=== PATIENT | female | born 1975 | race Caucasian/White ===

== ENCOUNTER 2017-02-23 21:00 | Inpatient (IN) ==
[2017-02-23] MEDS ORDERED: 0.9 % SODIUM CHLORIDE 500 ML IV ONE (21:29)
[2017-02-23] MEDS ORDERED: ONDANSETRON 4 MG/2 ML VIAL IV ONE (21:29)
[2017-02-23 22:28] LABS: Basophils # (Auto) 0 K/mcL (0.0-0.3); Basophils % (Auto) 0.5 % (0.0-2.0); Eosinophils # (Auto) 0.1 K/mcL (0.0-0.7); Eosinophils % (Auto) 1.7 % (0.0-7.0); Granulocytes % (Auto) 81.7 % (38.0-78.0); Lymphocytes # (Auto) 0.8 K/mcL (1.5-4.8); Lymphocytes % (Auto) 10.2 % (15.5-49.0); Mean Cell Volume 98.2 fL (80.0-100.0); Mean Corpuscular HGB Conc 32.9 g/dL (31.0-36.0); Mean Corpuscular Hemoglobin 32.3 pg (26.0-34.0); Monocytes # (Auto) 0.5 K/mcL (0.1-0.9); Monocytes % (Auto) 5.9 % (1.0-12.0); Platelet Count 109 K/mcL (140-440); RBC 4.61 M/mcL (4.00-5.20); Red Cell Distribution Width 13.3 % (11.5-14.5)
[2017-02-23 22:45] LABS: ALT/SGPT 162 U/l (0-40); Albumin 3.5 gm/dL (3.2-5.2); Alkaline Phosphatase 158 U/L (39-117); Amylase 70 U/L (28-100); Blood Urea Nitrogen 25 mg/dl (6-20); Lipase 128 U/L (7-60)
[2017-02-23] MEDS ORDERED: NITROFURANTOIN SR 100 MG CAPSULE PO ONE (23:15)
[2017-02-24] MEDS ORDERED: ONDANSETRON 4 MG/2 ML VIAL IV PRN (00:56)
--- NOTE | 2017-02-24 01:04 | Emergency Department Note ---
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 She started vomiting around 3:20 PM. Unclear if she's been having new diarrhea as her stools are normally relatively loose. Unclear if she's having a fever either. She is not able to give me much in way of meaningful history- much of this is from her caregiver who was present for the interview and exam. She brought in her medical binder which is briefly reviewed - Related Data Home Medications Medication Instructions Recorded Confirmed Levothyroxine [Synthroid] 88 mcg PO HS 02/23/17 02/24/17 Tadalafil [Adcirca] 40 mg PO DAILY 02/23/17 02/24/17 fluvoxaMINE MALEATE [Fluvoxamine 200 mg PO DAILY 02/23/17 02/24/17 Maleate] Calcium Carb/Vitamin D3/Vit K1 1 each PO BID 02/24/17 02/24/17 [Viactiv Soft Chew Tablet] Clobetasol Emollient 0.05% Crm 1 dose TOPICAL BID 02/24/17 02/24/17 Levothyroxine [Synthroid] 88 mcg PO QAMAC 02/24/17 02/24/17 Loratadine [Loradamed] 10 mg PO DAILY 02/24/17 02/24/17 Multivitamin [One Daily 1 each PO DAILY 02/24/17 02/24/17 Multivitamin] Pramipexole [Mirapex] 0.125 mg PO HS 02/24/17 02/24/17 Sodium Chloride/Aloe Vera [[place] 1 dose TOPICAL BID 02/24/17 02/24/17 Saline Nasal Gel] Allergies Allergy/AdvReac Type Severity Reaction Status Date / Time codeine Allergy Unknown Unknown Verified 02/24/17 02:43 diazepam [From Valium] Allergy Unknown Unknown Verified 02/24/17 02:43 meperidine [From Demerol] Allergy Unknown Unknown Verified 02/24/17 02:43 miconazole Allergy Unknown Unknown Verified 02/24/17 02:43 [From Neosporin AF] mupirocin [From Bactroban] Allergy Unknown Unknown Verified 02/24/17 02:43 nitrofurantoin Allergy Unknown Unknown Verified 02/24/17 02:43 Sulfa (Sulfonamide Allergy Unknown Unknown Verified 02/23/17 21:08 Antibiotics) tramadol Allergy Unknown Unknown Verified 02/24/17 02:43 Review of Systems All systems ED: reviewed and negative except as stated. Abdominal Pain PMH - Past Medical History Medical history: Reports: CHF, thyroid disease, other (Eisenmonger syndrome with congestive heart failure, oxygen dependent. down syndrome) Surgical history ED: Reports: hip replacement (bilateral) - Social History Smoking status: Never smoker Physical Exam Small female with classic Down's facies. No acute distress. Conjunctiva clear sclerae white and anicteric. No nasal discharge or congestion. Oropharynx is pink and moist. Neck is supple without lymphadenopathy or thyromegaly. Heart is regular rate and rhythm no murmurs appreciated. Lungs clear to auscultation bilaterally without wheezes rales rhonchi or respiratory distress. Abdomen soft mildly tender periumbilical area no peritoneal signs or guarding. No pedal edema. +2 radial pulse. Is able to sit up with some assistance. Developmentally delayed- is able to answer some questions but frequently gives nonsensical answers Course Vital Signs Temperature 98.0 F 02/23/17 21:01 Pulse Rate 89 02/23/17 21:01 Respiratory Rate 16 02/23/17 21:01 Blood Pressure 113/56 02/23/17 21:01 Pulse Oximetry (%) 94 02/23/17 21:01 Temperature 98.8 F 02/24/17 02:02 Pulse Rate 79 02/24/17 02:02 Respiratory Rate 18 02/24/17 02:02 Blood Pressure 114/70 02/24/17 02:02 Pulse Oximetry (%) 96 02/24/17 02:02 Abdominal Pain - Lab Data Lab results reviewed: Yes I reviewed the patient's lab results. Result diagrams: 02/23/17 21:42 02/23/17 21:42 Lab Results 02/23/17 02/23/17 02/23/17 Range/Units 21:42 21:42 21:42 WBC 7.8 (4.5-11.0) K/mcL RBC 4.61 (4.00-5.20) M/mcL Hgb 14.9 (12.0-15.0) g/dL Hct 45.2 (36.0-48.0) % MCV 98.2 (80.0-100.0) fL MCH 32.3 (26.0-34.0) pg MCHC 32.9 (31.0-36.0) g/dL RDW 13.3 (11.5-14.5) % Plt Count 109 L (140-440) K/mcL MPV 10.1 (7.4-10.4) fL Gran % 81.7 H (38.0-78.0) % Lymph % (Auto) 10.2 L (15.5-49.0) % Chase % (Auto) 5.9 (1.0-12.0) % Eos % (Auto) 1.7 (0.0-7.0) % Baso % (Auto) 0.5 (0.0-2.0) % Gran # 6.4 (1.8-8.0) K/mcL Lymph # 0.8 L (1.5-4.8) K/mcL Chase # 0.5 (0.1-0.9) K/mcL Eos # 0.1 (0.0-0.7) K/mcL Baso # 0 (0.0-0.3) K/mcL VBG Lactic Acid 1.2 (0.5-2.2) mmol/L Sodium 137 (133-145) mmol/L Potassium 4.1 (3.3-5.1) mmol/L Chloride 99 (96-108) mmol/L Carbon Dioxide 24 (22-30) mmol/L Anion Gap 14.0 (8-16) BUN 25 H (6-20) mg/dl Creatinine 1.0 (0.6-1.1) mg/dl GFR Calculation 69 Glucose 114 H (70-105) mg/dL Calcium 8.7 (8.6-10.4) mg/dl Total Bilirubin 0.4 (0.0-1.0) mg/dL AST 271 H (0-37) U/l ALT 162 H (0-40) U/l Alkaline Phosphatase 158 H (39-117) U/L Total Protein 6.9 (5.9-8.4) gm/dL Albumin 3.5 (3.2-5.2) gm/dL Globulin 3.4 (2.2-3.7) gm/dL Albumin/Globulin Ratio 1.0 (1.0-2.3) Amylase 70 (28-100) U/L Lipase 128 H (7-60) U/L urinalysis shows moderate leukocytes specific gravity 1.010 and small amount of blood - Radiology Data Radiology results reviewed: Yes I reviewed the patient's radiology results. Abdominal x-ray was initially done which did not show any free air diaphragm; nonspecific gas pattern Ultrasound of the gallbladder was done secondary to elevated liver enzymes with obstructive pattern. It showed a thickened gallbladder wall 1.8 3.9 cm segmentally thickened. Common bile duct modestly enlarged is 6.9 mm. She has multiple stones and sludge in her gallbladder Disposition Clinical Impression: Cholecystitis UTI (urinary tract infection) Qualifiers: Urinary tract infection type: acute cystitis Hematuria presence: with hematuria Qualified Code(s): N30.01 - Acute cystitis with hematuria Summary: Discussed patient with Dr. Jason Vidal- he agreed to accept the patient for further care. Holding orders are written. Started antibiotics Disposition: Xfer As Inpt ([facility]) Condition: Fair
[2017-02-24] MEDS: ceFAZolin 1 GM VIAL IV SCH ×2 (01:48→11:00)
[2017-02-24] MEDS: 0.9 % SODIUM CHLORIDE 10 ML SYRINGE IV SCH ×2 (06:50→14:17)
[2017-02-24] MEDS ORDERED: LEVOTHYROXINE 88 MCG TABLET PO SCH (07:30)
--- NOTE | 2017-02-24 08:36 | XRay Report ---
CLINICAL INFORMATION: Nausea vomiting diarrhea COMPARISON: None. FINDINGS: The stool gas pattern is unremarkable. There is no free air, abnormal soft tissue mass, organomegaly or pathologic calcification. IMPRESSION: Negative Interpreted and Authenticated by: Solomon Whitney 02/24/17
--- NOTE | 2017-02-24 08:38 | Ultrasound Report ---
CLINICAL INFORMATION: Right upper quadrant pain and elevated LFTs COMPARISON: None. FINDINGS: Liver is normal in size and echotexture without focal lesion. The gallbladder wall is slightly thickened - 4 mm. There are multiple stones packing the gallbladder. No focal tenderness. Common bile is normal - 6 mm. Pancreas is normal in size and echotexture. No free fluid IMPRESSION: Cholelithiasis. Mild gallbladder wall thickening suggests early cholecystitis. Bile ducts, liver and pancreas are normal. Interpreted and Authenticated by: Solomon Whitney 02/24/17
[2017-02-24] MEDS ORDERED: FLUVOXAMINE 25 MG PO SCH (09:00)
[2017-02-24] MEDS ORDERED: LEVONORGESTREL PO SCH (09:00)
[2017-02-24] MEDS ORDERED: TADALAFIL 40 MG PO SCH (09:00)
[2017-02-24] MEDS ORDERED: ETHINYL ESTRADIOL PO SCH (09:00)
[2017-02-24] MEDS ORDERED: FLUVOXAMINE 100 MG PO SCH (09:00)
[2017-02-24 09:28] LABS: proBNP 366.9 pg/ml (0-125)
[2017-02-24 09:33] LABS: ALT/SGPT 187 U/l (0-40); Albumin 3.2 gm/dL (3.2-5.2); Albumin/Globulin Ratio 0.9 (1.0-2.3); Alkaline Phosphatase 146 U/L (39-117); Blood Urea Nitrogen 18 mg/dl (6-20)
--- NOTE | 2017-02-24 09:40 | XRay Report ---
CLINICAL INFORMATION: Preop history CHF COMPARISON: 08/17/2014 FINDINGS: The heart is mildly enlarged, but unchanged. There appears to be asymmetric enlargement of the right atrium. Mediastinum is unremarkable. Upper lobe pulmonary vessels are slightly distended and there is no edema. Lungs are clear. No effusions IMPRESSION: Mild stable cardiomegaly with asymmetric enlargement of the right atrium. Cardiac morphology is deferred to prior echocardiogram. Mild pulmonary vascular distention is suggestive of mild CHF Interpreted and Authenticated by: Solomon Whitney 02/24/17
--- NOTE | 2017-02-24 11:37 | General Surg History&Physical ---
History of Present Illness Patient information: Note initiated : 02/24/17 at 11:37 am Service Date, if different from initiated Date: [] Patient: Katya Peña a 42 y/o F admitted on 02/24/17 for abd pain, vomiting. Chief Complaint: [] Chief complaint: abdominal pain abdominal pain HPI: Ms. Peña is a 42 year old female with onset of lower and mid abdominal pain on 23 February in the early afternoon. This was followed by multiple episodes of nausea and vomiting. The pain increased in severity and she was finally transferred to the hospital for evaluation. At the time of evaluation she was afebrile with stable vital signs. She had periumbilical and epigastric pain. Labs revealed elevated AST and ALT and alkaline phosphatase with normal bilirubin of 0.4. Ultrasound of the abdomenREVEALED THICKENED GALLBLADDER WALL WITH MULTIPLE GALLSTONES AND SLUDGE. pATIENT WAS ADMITTED IN THE TIGHTENER AND MONITORED OVERNIGHT. sHE IS MILDLY SYMPTOMATIC. She has remained afebrile. The patient has Eisenmenger syndrome. She had an echocardiogram but this has not been read. on close questioning with hercaretaker she has developed worsening congestive heart failure. Her medications shows that she is on tadalafil for pulmonary hypertension. This suggests that she has severe pulmonary ypertension with decompensated right heart failure. A BNP pro is only 346. It is felt however that she has 2 great of an anesthetic risk and will have high potential for perioperative mortality. I will therefore make arrangements for her to be transferred to [facility] where she has mmore pulmonary and cardiology expertise available. Review of Systems ROS unobtainable: due to mental status, other - Constitutional malaise, weight loss Past History Past medical history: EISENMENGER SYNDROME DOWN SYNDROME DEPRESSIVE DISORDER hYPOTHYROIDISM Past surgical history: BILATERAL TOTAL HIP REPLACEMENT Past family history: NOT APPLICABLE Past social history: LIVES WITH PARENTS Medications and Allergies Home Medications Medication Instructions Recorded Confirmed Type Levothyroxine [Synthroid] 88 mcg PO HS 02/23/17 02/24/17 History Tadalafil [Adcirca] 40 mg PO DAILY 02/23/17 02/24/17 History fluvoxaMINE MALEATE [Fluvoxamine 200 mg PO DAILY 02/23/17 02/24/17 History Maleate] Calcium Carb/Vitamin D3/Vit K1 1 each PO BID 02/24/17 02/24/17 History [Viactiv Soft Chew] Clobetasol Emollient 0.05% Crm 1 dose TOPICAL BID 02/24/17 02/24/17 History Levothyroxine [Synthroid] 88 mcg PO QAMAC 02/24/17 02/24/17 History Loratadine [Loradamed] 10 mg PO DAILY 02/24/17 02/24/17 History Multivitamin [One Daily 1 each PO DAILY 02/24/17 02/24/17 History Multivitamin] Pramipexole [Mirapex] 0.125 mg PO HS 02/24/17 02/24/17 History Sodium Chloride/Aloe Vera [[place] 1 dose TOPICAL BID 02/24/17 02/24/17 History Saline Nasal Gel] Allergies Allergy/AdvReac Type Severity Reaction Status Date / Time codeine Allergy Unknown Unknown Verified 02/24/17 02:43 diazepam [From Valium] Allergy Unknown Unknown Verified 02/24/17 02:43 meperidine [From Demerol] Allergy Unknown Unknown Verified 02/24/17 02:43 miconazole Allergy Unknown Unknown Verified 02/24/17 02:43 [From Neosporin AF] mupirocin [From Bactroban] Allergy Unknown Unknown Verified 02/24/17 02:43 nitrofurantoin Allergy Unknown Unknown Verified 02/24/17 02:43 Sulfa (Sulfonamide Allergy Unknown Unknown Verified 02/23/17 21:08 Antibiotics) tramadol Allergy Unknown Unknown Verified 02/24/17 02:43 Exam Temp Pulse Resp BP Pulse Ox 97.8 F 83 20 104/60 93 02/24/17 07:14 02/24/17 07:14 02/24/17 07:14 02/24/17 07:14 02/24/17 08:00 - General physical appearance no distress, moderate pain, other (VERY SMALL FRAME WITH dOWN'S FACIES) - Eyes PERRL, normal ocular movement - ENT normal pinna, normal nares, normal mucosa, no hearing loss, no congestion - Head Head exam IM: Present: atraumatic, normocephalic - Neck no masses, no bruits, trachea midline, no lymphadectomy, no venous distension - Cardiovascular Cardiovascular exam IM: Present: normal rate and rhythm, JVD, +S1, +S2 Type of murmur IM: Present: systolic Intensity IM: 2/6 - Respiratory normal expansion, normal respiratory effort, clear to percussion, clear to auscultation - Abdomen Abdomen: Present: soft, tender (EPIGASTRIC TENDERNESS), bowel sounds Hernia: Present: none - Integumentary Present: no rash, no growths, no abnormal pigmentation - Neurologic Present: normal coordination, normal sensation - Musculoskeletal Present: normal gait, normal posture - Psychiatric Present: oriented to person, oriented to place, other (DECREASED MENTAL STATUS) Assessment and Plan (1) Cholelithiasis and cholecystitis without obstruction patient will need cholecystectomy; I have elected to transfer her because of her associated comorbidities. she will need to have this surgery done at another facility with coordinated pulmonary and cardiology care. Her perioperative morbidity and mortality would approach 50% probability even under the the best circumstances. Status: Acute (2) Eisenmenger syndrome Status: Acute (3) Down syndrome Status: Acute
--- NOTE | 2017-02-24 11:38 | Discharge Summary ---
Providers - Providers Patient information: Note initiated : 02/24/17 at 11:37 am Service Date, if different from initiated Date: [] Patient: Katya Peña 42 y/o F admitted on 02/24/17 for abd pain, vomiting. Chief Complaint: [] Date of admission: 02/24/17 Discharge date: 02/24/17 Attending physician: Nicki Vidal Hospitalization Hospital course: 42 y/o female with downs syndrome who presents with recurrent abdominal pain , nausea and vomiting. she was seen in E.R. and noted to have elevated lft's and multiple gallstones with thickened gallbladder wall. she has Eisenmengers syndromeWITH CHRONIC HYPOXEMIA ,RIGHT HEART FAILURE ,ADVANCED PULMONARY HYPERTENSION,AND MAJOR BIDIRECTION A-V SHUNT. she feels much better now . on discussion with her refrigerator mover the patient is at major risk for cardio- respiratory decompensation with anesthesia and will need more comprehensive anesthetic care. this will need to b arranged at a tertiary facility. i have contacted [facility] in [place] and they have accepted her in transfer. Discharge diagnosis: Cholelithiasis with Cholecystitis Secondary discharge diagnosis: Eisenmenger's syndrome with right heart failure;pulmonary hypertension; bidirectional shunt . ,she appearsto be compensated at this time Reason for admission: Cholellithiasis with Cholecystitis Procedures: aNONE Pertinent studies/significant findings: UPPER ABDOMINAL ULTRASOUND ECHOCARDIOGRAM Complications: NONE Exam Temp Pulse Resp BP Pulse Ox 97.8 F 83 20 104/60 93 02/24/17 07:14 02/24/17 07:14 02/24/17 07:14 02/24/17 07:14 02/24/17 08:00 - General physical appearance well nourished, no distress, no pain, other (small frame with downs facies and associated bony structural change) - Eyes PERRL, normal ocular movement - ENT normal pinna, normal nares, normal mucosa, no hearing loss, no congestion - Head Head exam IM: Present: atraumatic, normocephalic - Neck no masses, no bruits, trachea midline, no lymphadectomy, no venous distension - Cardiovascular Cardiovascular exam IM: Present: normal rate and rhythm, RRR, +S1 Type of murmur IM: Present: systolic Intensity IM: 2/6 - Respiratory normal expansion, normal respiratory effort, clear to percussion, clear to auscultation, other (no rales or rhonchi heard) - Abdomen Abdomen: Present: soft, tender (mild epigastric and ruq tenderness; no mass felt ), bowel sounds Hernia: Present: none - Integumentary Present: no rash, no growths, no abnormal pigmentation - Neurologic Present: normal coordination, normal sensation, other (major deficit in cognitive function) - Musculoskeletal Present: normal gait, normal posture - Psychiatric Present: oriented to person, oriented to place Discharge Plan - Patient/Caregiver Discharge Instructions Activity: increase activity as tolerated Diet: NPO - Follow up Plan Follow up with: Jovita Martinez MD [Primary Care Provider] - Disposition: [facility] Prognosis: Fair Rehab Potential: Fair I certify that the patient requires SNF services.: No Overall status at discharge: patient is not back to baseline Pending Studies Resuscitation Status Full Code Diet NPO Diet (NOW) Start FriFeb 24 Breakfast Cefazolin Sodium (Ancef) 1 gm IV Q8H [facility] Last Admin: 02/24/17 11:00 Dose: 1 gm Admin: 02/24/17 01:48 Dose: 1 gm Levothyroxine Sodium (Synthroid) 88 mcg PO QAMAC [facility] Last Admin: 02/24/17 08:26 Dose: 88 mcg Fluvoxamine (Luvox) (100 Mg Tab) 2 dose PO DAILY [facility] Last Admin: 02/24/17 11:22 Dose: Not Given Ethinyl Estradiol/Levonorgestrel ( Aviane) 0.1/0.02 Mg Tab 1 dose PO DAILY [facility] Last Admin: 02/24/17 08:28 Dose: Not Given Tadalafil (Cialis) (20 Mg Tab) 2 dose PO DAILY [facility] Last Admin: 02/24/17 11:23 Dose: Not Given Fluvoxamine (Luvox) (25 Mg Tab) 1 dose PO DAILY [facility] Last Admin: 02/24/17 11:23 Dose: Not Given Sodium Chloride (Saline Flush) 10 ml IV Q8 [facility] Last Admin: 02/24/17 06:50 Dose: 10 ml Shift Summary 02/24/17 04:36 Shift Summary by Sandy Perez Patient alert, has down syndrome. Caregiver at bedside, patient from a care center. Here for N/V and diarrhea, still need a C-diff sample. High liver enzymes. Gallstones present. Dr. Vidal will see patient today. Will need consents signed by father this morning, he is primary guardian. IV SL to [facility]. Pt has hx of CHF, is closely watched by a gas plant repairer in [place]. Patient is very pleasant with all cares. will update at bedside. Initialized on 02/24/17 04:36 - END OF NOTE
[2017-02-24] MEDS ORDERED: PRAMIPEXOLE 0.25 MG TABLET PO SCH (21:00)
--- NOTE | 2017-02-25 12:29 | Echocardiogram Report ---
REASON FOR THE STUDY: Congestive heart failure, history of Eisenmenger syndrome. IMAGE INTERPRETATION: The study is performed with the patient in sinus rhythm. The left ventricle appears normal in size. Left ventricular systolic function appears normal. There are no regional wall motion abnormalities, and the ejection fraction is estimated at 55-60%. The right and left atrium appear normal in size. The right ventricle appears normal in size and function. The mitral valve has heavy calcification. There is, however, no significant mitral stenosis. There is at least moderate mitral regurgitation. The jet is eccentric. The aortic valve appears likely bicuspid. However, valve leaflet excursion appears normal, and there is no significant aortic stenosis. There is trace aortic insufficiency. There is [id number] tricuspid regurgitation and trace pulmonic insufficiency. Doppler interrogation reveals no significant mitral stenosis. The peak velocity across the tricuspid valve is elevated at 4.3 m/sec. The estimated pulmonary artery pressure is consistent with severe pulmonary hypertension at 73 mmHg. There is no significant aortic stenosis. There is a suggestion of a membranous ventricular septal defect. There does appear to be a small [id number] shunt. IMPRESSION: 1. Normal left ventricular function, ejection fraction 55%. 2. Normal right side chamber size and apparent function. 3. Calcified mitral valve without significant mitral stenosis and at least moderate mitral regurgitation. 4. Probable bicuspid aortic valve but no aortic stenosis and trace aortic insufficiency. 5. [id number]-[id number]-[id number] tricuspid regurgitation. 6. Severe pulmonary hypertension, PA systolic estimated at 73 mmHg. 7. Possible small membranous ventricular septal defect with small [id number]-qqajr shunt. ECHOCARDIOGRAPHY M-MODE CALCULATIONS: HT: 52'' WT: 83 BSA: 1.16 m2 NORMALS AORTA: AORTIC ROOT 3.4 cm AoV = 1.6 cm 2.0-3.7 cm LEFT ATRIUM 3.6 1.9-4.0 cm MITRAL VALVE: EXCURSION 1.6 1.9-2.7 cm EPSS 0.8 cm <0.5 cm LT VENTRICLE: LVID (ED) 4.0 3.5-5.7 cm LVID (ES) 2.8 SEPTAL THICKNESS 1.1 0.6-1.1 cm SEPTAL EXCURSION 1.0 0.3-0.8 cm LVPW THICKNESS 0.8 0.6-1.1 cm LVPW EXCURSION 1.2 0.9-1.4 cm MINOR AXIS FS 29.9% 25%-40% RT VENTRICLE: RVID (ED) 1.6 0.9-2.6 cm(up to 3cm if LLD) QUALITATIVE DOPPLER FLOW STUDIES MITRAL VALVE MR AORTIC VALVE AI TRICUSPID VALVE TR PULMONIC VALVE PI QUANTITATIVE DOPPLER FLOW STUDIES SAMPLE SITES VELOCITIES PEAK PRESSURE VALVE AREA and/or VALVE WINDOW (PEAK,M/SEC) DROP (GRADIENT) PRESSURE HALF-TIME MV (Diastole) 1.2 (E) 0.9 (A) MV (Systole) 4.5 80 mmHg AO (Diastole) 4.6 80 mmHg AO (Systole) 1.3 LVOT Diam 18mm AOV area = 2.17 cm2 TV (Systole) 4.3 73 mmHg PV (Systole) 0.9 PV (Diastole) 3.753.4 mmHg MINERVA:jovanna Job ID: [id number] Doc ID: [id number] Zac Vidal M.D.
== END 2017-02-24 14:45 | disposition short-term general hospital (02) | DRG 445 ==
LOC: ED 21:00 → MEDSUR 02-24 01:38
PROVIDERS: ADMIT Family Medicine Adult Medicine; ATTEND Family Medicine Adult Medicine